=== PATIENT | male | born 1965 | race Two or more races ===

== ENCOUNTER 2017-07-23 23:35 | Emergency (ER) | payer SELFPAY ==
[~2017-07-23] VITALS: Ht 182.9 cm; Wt 86.2 kg
--- NOTE | 2017-07-24 00:15 | NUR ---
DR. ABDI IS AT THE BEDSIDE SPEAKING TO THE PT.
--- NOTE | 2017-07-24 01:12 | NUR ---
PT APPEARS TO BE SLIGHTLY ANXIOUS, BUT IS RESTING COMFORTABLY. VSS.
--- NOTE | 2017-07-24 02:14 | NUR ---
PT AMBULATED TO THE BATHROOM WITH A STEADY GAIT. PT IS TRYING TO GIVE A URINE SAMPLE.
--- NOTE | 2017-07-24 02:20 | NUR ---
PT AMBULATED BACK TO BED #4 AND ASKED IF HE COULD GO HOME. PT STATED: "I FEEL FINE NOW". DR. ABDI WAS NOTIFIED.
[2017-07-24 02:21] VITALS: BP 159/95
--- NOTE | 2017-07-24 02:22 | NUR ---
Patient discharged to home in stable condition. Written and verbal after care instructions given. Patient verbalizes understanding of instruction. PT AMBULATED OUT WITH A STEADY GAIT. VSS.
== END 2017-07-24 02:22 | disposition home or self-care (01) ==
LOC: ER 23:39
DX: F12.10 Cannabis abuse, uncomplicated (principal); T40.7X1A Poisoning by cannabis (derivatives), accidental (unintentional), initial encounter; F41.9 Anxiety disorder, unspecified; I10 Essential (primary) hypertension; Y92.89 Other specified places as the place of occurrence of the external cause
CPT/HCPCS: 80305; 93005; 99285; A4606; Z7610